=== PATIENT | female | born 1995 | race American Indian/Alaskan Native ===

== ENCOUNTER 2018-04-10 15:28 | Emergency (ER) | payer SELFPAY ==
[2018-04-10 16:03] VITALS: BP 111/72
[2018-04-10] MEDS ORDERED: MOTRIN ONE (16:03)
[2018-04-10] MEDS ORDERED: MOTRIN PO ONE (16:08)
[2018-04-10] MEDS ORDERED: BICILLIN L-A IM ONE (18:03)
--- NOTE | 2018-04-10 18:04 | Emergency Department Report ---
ED ENT HPI - General Chief complaint: Sore Throat Stated complaint: SORE THROAT/WEAK/NOSE RUNNY Time Seen by Provider: 04/10/18 17:18 Source: patient Mode of arrival: Ambulatory Limitations: No Limitations - History of Present Illness Initial comments: This is a 23-year-old -[place] female who presents with sore throat for 2 weeks. Patient states her younger sister was diagnosed with strep throat and treated with antibiotics and pain medication a few weeks ago. Patient states everyone at home has similar symptoms. She has been taken [id number] cold and flu medication with no improvement of symptoms. Patient reports pain is 10 out of 10 on pain scale and worse with swallowing. She is also complaining of some body aches and fever. Patient denies nausea or vomiting, chest pain, shortness of breath, drooling, tongue swelling. MD complaint: sore throat Onset/Timin -: week(s) Severity: moderate Severity scale (0 -10): 7 Quality: aching Consistency: constant Improves with: none Worsens with: swallowing, eating Associated Symptoms: fever, pain with swallowing. denies: cough, gum swelling, toothache, sore throat, tinnitus, hearing loss, discharge from ear, rhinorrhea - Related Data Previous Rx's Medication Instructions Recorded Last Taken Type Acetaminophen/Codeine [Tylenol 1 tab PO Q6H PRN #15 tab 04/10/18 Unknown Rx /Codeine # 3 tab] Lidocaine Viscous 2% 15 ml MM Q3H PRN #100 ml 04/10/18 Unknown Rx Penicillin V Potassium 500 mg PO BID #20 tablet 04/10/18 Unknown Rx Allergies Allergy/AdvReac Type Severity Reaction Status Date / Time No Known Allergies Allergy Verified 04/19/15 10:28 ED Dental HPI - General Chief complaint: Sore Throat Stated complaint: SORE THROAT/WEAK/NOSE RUNNY Time Seen by Provider: 04/10/18 17:18 Source: patient Mode of arrival: Ambulatory Limitations: No Limitations - Related Data Previous Rx's Medication Instructions Recorded Last Taken Type Acetaminophen/Codeine [Tylenol 1 tab PO Q6H PRN #15 tab 04/10/18 Unknown Rx /Codeine # 3 tab] Lidocaine Viscous 2% 15 ml MM Q3H PRN #100 ml 04/10/18 Unknown Rx Penicillin V Potassium 500 mg PO BID #20 tablet 04/10/18 Unknown Rx Allergies Allergy/AdvReac Type Severity Reaction Status Date / Time No Known Allergies Allergy Verified 04/19/15 10:28 ED Review of Systems ROS: Stated complaint: SORE THROAT/WEAK/NOSE RUNNY Other details as noted in HPI Constitutional: fever. denies: chills ENT: throat pain. denies: ear pain, dental pain, hearing loss, epistaxis, congestion Respiratory: denies: cough, shortness of breath, wheezing Cardiovascular: denies: chest pain, palpitations Gastrointestinal: denies: abdominal pain, nausea, diarrhea Musculoskeletal: myalgia. denies: back pain, joint swelling, arthralgia Neurological: headache. denies: weakness, numbness, paresthesias Psychiatric: denies: anxiety, depression ED Past Medical Hx - Past Medical History Hx Hypertension: No Hx Congestive Heart Failure: No Hx Diabetes: No Hx Deep Vein Thrombosis: No Hx Renal Disease: No Hx Sickle Cell Disease: No Hx Seizures: No Hx Asthma: No Hx COPD: No Hx HIV: No - Surgical History Past Surgical History?: No - Social History Smoking Status: Never Smoker Substance Use Type: None - Medications Home Medications: Home Medications Medication Instructions Recorded Confirmed Last Taken Type Acetaminophen/Codeine [Tylenol 1 tab PO Q6H PRN #15 tab 04/10/18 Unknown Rx /Codeine # 3 tab] Lidocaine Viscous 2% 15 ml MM Q3H PRN #100 ml 04/10/18 Unknown Rx Penicillin V Potassium 500 mg PO BID #20 tablet 04/10/18 Unknown Rx ED Physical Exam - General Limitations: No Limitations General appearance: alert, in no apparent distress - ENT ENT exam: Present: mucous membranes moist, TM's normal bilaterally. Absent: normal orophraynx (tonsils are enlarged with white exudate) - Neck Neck exam: Present: full ROM, lymphadenopathy. Absent: tenderness, meningismus , thyromegaly - Respiratory Respiratory exam: Present: normal lung sounds bilaterally. Absent: respiratory distress - Cardiovascular Cardiovascular Exam: Present: regular rate, normal rhythm. Absent: systolic murmur, diastolic murmur, rubs, gallop - GI/Abdominal GI/Abdominal exam: Present: soft, normal bowel sounds. Absent: organomegaly, mass - Neurological Exam Neurological exam: Present: alert, oriented X3 - Psychiatric Psychiatric exam: Present: normal affect, normal mood - Skin Skin exam: Present: warm, dry, intact, normal color. Absent: rash ED Course Vital Signs 04/10/18 16:00 Temperature 102.6 F H Pulse Rate 107 H Blood Pressure 111/72 O2 Sat by Pulse 100 Oximetry ED Medical Decision Making - Medical Decision Making This is a 46 y.o. male that presents with sore throat for 2 weeks. Patient examined by me and stable. No distress noted. Rapid strep obtained and positive for strep A. temperature elevated on arrival. Patient given ibuprofen in triage. Given bicillin I-A 1.2 mL IM once in ER. Start penicillin, Tylenol with Codeine, and lidocaine. She was. Discussed plan with patient and she agreed with plan to treat outpatient. Discharged home. Return to work Thursday. Follow up with PCP in 48-72 hours. Critical care attestation.: If time is entered above; I have spent that time in minutes in the direct care of this critically ill patient, excluding procedure time. ED Disposition Clinical Impression: Sore throat, Acute streptococcal pharyngitis Disposition: TO HOME OR SELFCARE Is pt being admited?: No Does the pt Need Aspirin: No Condition: Stable Instructions: Strep Throat (ED) Additional Instructions: Expect symptoms to improve within 3 or 4 days. There is no need for bed rest or isolation. Use tyleonl or ibuprofen for symptoms of sore throat, headache, and fever. Return to work in 24 hours of taking antibiotics. Follow up with Primary Care Provider in 48-72 hours. Prescriptions: Acetaminophen/Codeine [Tylenol /Codeine # 3 tab] 1 tab PO Q6H PRN #15 tab PRN Reason: Pain , Severe (7-10) Lidocaine Viscous 2% 15 ml MM Q3H PRN #100 ml PRN Reason: Sore Throat Penicillin V Potassium 500 mg PO BID #20 tablet Referrals: [facility] [Outside] - 3-5 Days [facility] [Outside] - 3-5 Days [facility] [Outside] - 3-5 Days Forms: Work/School Release Form(ED) Time of Disposition: 18:08 Print Language: SETSWANA
== END 2018-04-10 18:45 | disposition home or self-care (01) ==
LOC: ED 15:28
DX: J02.0 Streptococcal pharyngitis (principal)
CPT/HCPCS: 87430; 96372; 99283; J0561

== ENCOUNTER 2021-07-23 08:59 | Emergency (ER) | payer SELFPAY ==
--- NOTE | 2021-07-23 10:13 | Emergency Department Report ---
ED ENT HPI - General Chief complaint: Sore Throat Stated complaint: throat pain Time Seen by Provider: 07/23/21 10:10 Source: patient Mode of arrival: Ambulatory Limitations: No Limitations - History of Present Illness Initial comments: Patient is a 26-year-old female presents emergency room complaints of throat discomfort for 2 months. She states that she feels like she needs to clear her throat and will get an itch in her throat. She states that also occasionally she feels a burning sensation. She denies any difficulty swallowing, fever, nausea, vomiting, diarrhea, cough, shortness of breath. She has not seen a primary care doctor or an ENT specialist. No past medical history. No allergies to medications. She states that she is on Depo-Provera for control and denies any missed doses. - Related Data Previous Rx's Medication Instructions Recorded Last Taken Type Acetaminophen/Codeine [Tylenol 1 tab PO Q6H PRN #15 tab 04/10/18 Unknown Rx /Codeine # 3 tab] Lidocaine Viscous 2% 15 ml MM Q3H PRN #100 ml 04/10/18 Unknown Rx Penicillin V Potassium 500 mg PO BID #20 tablet 04/10/18 Unknown Rx Famotidine [Pepcid] 40 mg PO QHS #30 tablet 07/23/21 Unknown Rx Loratadine 10 mg PO DAILY #30 tablet 07/23/21 Unknown Rx Allergies Allergy/AdvReac Type Severity Reaction Status Date / Time No Known Allergies Allergy Verified 04/19/15 10:28 ED Dental HPI - General Chief complaint: Sore Throat Stated complaint: throat pain Time Seen by Provider: 07/23/21 10:10 Source: patient Mode of arrival: Ambulatory Limitations: No Limitations - Related Data Previous Rx's Medication Instructions Recorded Last Taken Type Acetaminophen/Codeine [Tylenol 1 tab PO Q6H PRN #15 tab 04/10/18 Unknown Rx /Codeine # 3 tab] Lidocaine Viscous 2% 15 ml MM Q3H PRN #100 ml 04/10/18 Unknown Rx Penicillin V Potassium 500 mg PO BID #20 tablet 04/10/18 Unknown Rx Famotidine [Pepcid] 40 mg PO QHS #30 tablet 07/23/21 Unknown Rx Loratadine 10 mg PO DAILY #30 tablet 07/23/21 Unknown Rx Allergies Allergy/AdvReac Type Severity Reaction Status Date / Time No Known Allergies Allergy Verified 04/19/15 10:28 ED Review of Systems ROS: Stated complaint: throat pain Other details as noted in HPI Comment: All other systems reviewed and negative ED Past Medical Hx - Past Medical History Hx Hypertension: No Hx Congestive Heart Failure: No Hx Diabetes: No Hx Deep Vein Thrombosis: No Hx Renal Disease: No Hx Sickle Cell Disease: No Hx Seizures: No Hx Asthma: No Hx COPD: No Hx HIV: No Additional medical history: Sore throat pain - Social History Smoking Status: Never Smoker Substance Use Type: None - Medications Home Medications: Home Medications Medication Instructions Recorded Confirmed Last Taken Type Acetaminophen/Codeine [Tylenol 1 tab PO Q6H PRN #15 tab 04/10/18 Unknown Rx /Codeine # 3 tab] Lidocaine Viscous 2% 15 ml MM Q3H PRN #100 ml 04/10/18 Unknown Rx Penicillin V Potassium 500 mg PO BID #20 tablet 04/10/18 Unknown Rx Famotidine [Pepcid] 40 mg PO QHS #30 tablet 07/23/21 Unknown Rx Loratadine 10 mg PO DAILY #30 tablet 07/23/21 Unknown Rx ED Physical Exam - General Limitations: No Limitations General appearance: alert, in no apparent distress - Head Head exam: Present: atraumatic, normocephalic - Eye Eye exam: Present: normal appearance - ENT ENT exam: Present: normal orophraynx, mucous membranes moist - Neck Neck exam: Absent: lymphadenopathy, thyromegaly - Respiratory Respiratory exam: Present: normal lung sounds bilaterally. Absent: respiratory distress, wheezes, rales, rhonchi, stridor, chest wall tenderness, accessory muscle use, decreased breath sounds, prolonged expiratory - Cardiovascular Cardiovascular Exam: Present: regular rate, normal rhythm, normal heart sounds. Absent: systolic murmur, diastolic murmur, rubs, gallop - Neurological Exam Neurological exam: Present: alert, oriented X3 - Psychiatric Psychiatric exam: Present: normal affect, normal mood - Skin Skin exam: Present: warm, dry, intact ED Course Vital Signs 07/23/21 07/23/21 07/23/21 09:04 09:07 10:18 Temperature 98.6 F 98.8 F Pulse Rate 93 H 96 H 85 Respiratory 16 16 Rate Blood Pressure 119/62 Blood Pressure 108/73 [Right] O2 Sat by Pulse 100 100 100 Oximetry ED Medical Decision Making - Medical Decision Making Patient is a 26-year-old female presents emergency room complaints of throat discomfort for 2 months. She states that she feels like she needs to clear her throat and will get an itch in her throat. She states that also occasionally she feels a burning sensation. She denies any difficulty swallowing, fever, nausea, vomiting, diarrhea, cough, shortness of breath. She has not seen a primary care doctor or an ENT specialist. No past medical history. No allergies to medications. She states that she is on Depo-Provera for control and denies any missed doses. Vitals are normal. On exam: Normal oropharynx,, no tonsillar hypertrophy or exudates, uvula is midline, no uvular edema or deviation, no trismus, no muffled voice, no tongue elevation, no palpable thyromegaly, no lymphadenopathy. Symptoms could be related to allergies versus GERD. Patient given prescription for medication. Patient will be referred to ENT and primary care. Discussed return precautions. Advised patient Please take medication as prescribed. Gargle warm salt water. Follow- up with a primary care doctor. Follow-up with ear nose and throat doctor. Return to emergency room for any new or worsening symptoms. Critical care attestation.: If time is entered above; I have spent that time in minutes in the direct care of this critically ill patient, excluding procedure time. ED Disposition Clinical Impression: Throat discomfort Disposition: 01 HOME / SELF CARE / HOMELESS Is pt being admited?: No Does the pt Need Aspirin: No Condition: Stable Instructions: Sore Throat Additional Instructions: Please take medication as prescribed. Gargle warm salt water. Follow-up with a primary care doctor. Follow-up with ear nose and throat doctor. Return to emergency room for any new or worsening symptoms. Prescriptions: Famotidine [Pepcid] 40 mg PO QHS #30 tablet Loratadine 10 mg PO DAILY #30 tablet Referrals: SIVAN HENDRIX MD [Staff Physician] - 2-3 Days (ENT) MARA WRIGHT MD [Referring] - 2-3 Days (ENT) [facility] [Provider Group] - 2-3 Days Time of Disposition: 10:11 Print Language: SENEGALESE
[2021-07-23 10:26] VITALS: BP 108/73
== END 2021-07-23 10:28 | disposition home or self-care (01) ==
LOC: ED 08:59
DX: J02.9 Acute pharyngitis, unspecified (principal); Z79.899 Other long term (current) drug therapy
CPT/HCPCS: 99282

== ENCOUNTER 2022-01-01 10:43 | Emergency (ER) | payer SELFPAY ==
[2022-01-01] MEDS ORDERED: CYCLOBENZAPRINE 10 MG TAB PO ONE (14:04)
[2022-01-01] MEDS ORDERED: KETOROLAC 10 MG TAB PO ONE (14:04)
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
[2022-01-01 16:15] VITALS: BP 136/80
== END 2022-01-01 16:15 | disposition home or self-care (01) ==
LOC: ED 10:43
DX: S16.1XXA Strain of muscle, fascia and tendon at neck level, initial encounter (principal); S39.012A Strain of muscle, fascia and tendon of lower back, initial encounter; V89.2XXA Person injured in unspecified motor-vehicle accident, traffic, initial encounter; Y93.89 Activity, other specified; Y92.89 Other specified places as the place of occurrence of the external cause; Y99.8 Other external cause status
CPT/HCPCS: 72040; 72100; 99283